=== PATIENT | female | born 1950 | race Caucasian/White ===

== ENCOUNTER 2016-12-02 18:06 | Emergency (ER) | payer OTHER ==
[2016-12-02 18:38] VITALS: BP 139/96
[2016-12-02] MEDS ORDERED: Nitrofurantoin Macrocrystals* 50 MG CAP PO ONE (19:38)
[2016-12-02] MEDS ORDERED: Phenazopyridine TAB* 100 MG PO ONE (19:39)
--- NOTE | 2016-12-02 20:23 | UC ---
Complaint Female HPI - HPI Summary HPI Summary: Patient presents to with urgency, frequency, burning upon urination. Dark colored, cloudy urine. Denies flank pain. Denies diaphoresis and chills. Denies known fever. No abnormal vaginal discharge reported. Otherwise healthy. States she has had UTI's before and this feels similar. Pain suprapubically. - History Of Current Complaint Hx Obtained From: Patient ?: No Timing: Constant Severity Initially: Moderate Severity Currently: Moderate Pain Intensity: 5 Pain Scale Used: 0-10 Numeric Character: Burning Aggravating Factor(s): Movement - Risk Factors Ectopic Risk Factor: Negative Ovarian Torsion Risk Factor: Negative <Charline Jerez - Last Filed: 12/02/16 20:18> <Mary Ann Ross - Last Filed: 12/02/16 20:30> - History Of Current Complaint Chief Complaint: UCGU Stated Complaint: UTI Time Seen by Provider: 12/02/16 19:15 - Allergies/Home Medications Allergies/Adverse Reactions: Allergies Allergy/AdvReac Type Severity Reaction Status Date / Time Clindamycin Allergy Severe STATES SHE Verified 12/02/16 18:38 [From Cleocin HCl] HAD C-DIFF FROM THIS Sulfa Antibiotics Allergy Severe Hives Verified 12/02/16 18:38 Penicillins Allergy Unknown Unknown Verified 12/02/16 18:38 Reaction Details Home Medications: Home Medications Allergy Shots* 12/02/16 [History] DULoxetine CAP* [Cymbalta CAP*] 12/02/16 [History] PMH/Surg Hx/FS Hx/Imm Hx Previously Healthy: Yes - Surgical History Surgical History: Yes Surgery Procedure, Year, and Place: RIGHT LUMPECTOMY, LEFT OOPHORECTOMY, ENDOMETRIAL "ISSUES" - Social History Occupation: Employed Full-time Lives: With Family Alcohol Use: Occasionally Substance Use Type: None Smoking Status (MU): Never Smoked Tobacco <Charline Jerez - Last Filed: 12/02/16 20:18> Review of Systems Constitutional: Negative Skin: Negative Respiratory: Negative Cardiovascular: Negative Genitourinary: Dysuria, Frequency, Urgency Motor: Negative Neurovascular: Negative Musculoskeletal: Negative All Other Systems Reviewed And Are Negative: Yes <Charline Jerez - Last Filed: 12/02/16 20:18> Physical Exam Triage Information Reviewed: Yes Appearance: Well-Appearing, No Pain Distress, Well-Nourished Vital Signs: Initial Vital Signs Temp 97.3 F 12/02/16 18:34 Pulse 79 12/02/16 18:34 Resp 16 12/02/16 18:34 BP 139/96 12/02/16 18:34 Pulse Ox 99 12/02/16 18:34 Vital Signs Reviewed: Yes Neck: Positive: Supple, No Lymphadenopathy Respiratory Exam: Normal Respiratory: Positive: Chest non-tender, Lungs clear, Normal breath sounds, No respiratory distress Cardiovascular Exam: Normal Cardiovascular: Positive: RRR Neurological Exam: Normal Neurological: Positive: Alert Psychological: Positive: Normal Response To Family, Age Appropriate Behavior Skin Exam: Normal <Charline Jerez - Last Filed: 12/02/16 20:18> Vital Signs: Initial Vital Signs Temp 97.3 F 12/02/16 18:34 Pulse 79 12/02/16 18:34 Resp 16 12/02/16 18:34 BP 139/96 12/02/16 18:34 Pulse Ox 99 12/02/16 18:34 <Mary Ann Ross - Last Filed: 12/02/16 20:30> Complaint Female Dx - Course Course Of Treatment: UA performed. WBC and leuks seen. Labs WNL. Patient experiencing urgency, frequency and pain on urination. Dark urine noted. No abnormal vaginal discharge or bleeding. No CVA tenderness bilaterally. No previous UTI within last 6 months and no recent Augmentin use. Will treat for uncomplicated UTI and await sensitivities of urine culture. Will call if abx not sensitive to medication. Pyridium given for comfort. Return precautions and follow up with PCP. - Differential Dx/Diagnosis Differential Diagnosis/HQI/PQRI: Pelvic Inflammatory Disease, Renal Colic, Urinary Tract Infection Provider Diagnoses: UTI <Charline Jerez - Last Filed: 12/02/16 20:18> Discharge <Charline Jerez - Last Filed: 12/02/16 20:18> <Mary Ann Ross - Last Filed: 12/02/16 20:30> - Discharge Plan Condition: Stable Disposition: HOME Prescriptions: Nitrofurantoin Monohyd Macro [Macrobid] 100 mg PO BID #10 cap Phenazopyridine TAB* [Pyridium 100 mg TAB*] 100 mg PO TID #12 tab Patient Education Materials: Urinary Tract Infection in Women (ED) Referrals: Pillo Tian MD [Primary Care Provider] - Additional Instructions: Dx. Urinary Tract Infection Drink plenty of fluids. Supplement with cranberry or lyles juice. You may also take an over the counter cranberry supplement. If you have any questions about this, you may ask your pharmacist. If your symptoms have not improved in 1-2 days, if you develop fever, sweats or chills, please go to your emergency room, or call your PCP. Antibiotics were prescribed to you. Please take as directed. Supplement with over the counter probiotics on the opposite schedule of your antibiotic to prevent secondary infections. Do not take together as they may counteract each other. Pyridium: This medication is used to treat pain, burning, increased urination, and increased urge to urinate. These symptoms are usually caused by infection, injury, surgery, catheter, or other conditions that irritate the lower urinary tract. Pyridium will treat the symptoms of a urinary tract infection, but this medication does not treat the actual infection. Take the antibiotic that your doctor prescribes to treat your infection. Pyridium will most likely darken the color of your urine to an orange or red color. This is a normal effect and is not cause for alarm unless you have other symptoms such as pale or yellowed skin, fever, stomach pain, nausea, and vomiting. Darkened urine may also cause stains to your underwear, which may or may not be removed by laundering. It can also permanently stain soft contact lenses, and you should not wear them while taking this medicine. Attestation Statement User Type: Provider - I was available for consult. This patient was seen by the GAURANG. The patient was not presented to, seen by, or examined by me. -Clementine <Mary Ann Ross - Last Filed: 12/02/16 20:30>
== END 2016-12-02 19:45 | disposition home or self-care (01) ==
LOC: UCEAST 18:06
DX: N39.0 Urinary tract infection, site not specified (principal); B96.20 Unspecified Escherichia coli [E. coli] as the cause of diseases classified elsewhere; B95.7 Other staphylococcus as the cause of diseases classified elsewhere; Z87.440 Personal history of urinary (tract) infections; Z88.1 Allergy status to other antibiotic agents; Z88.0 Allergy status to penicillin; Z88.2 Allergy status to sulfonamides
CPT/HCPCS: 81002; 87077; 87086; 87186; 99212; A9270-GY; G0463